=== PATIENT | female | born 1990 | race Two or more races ===

== ENCOUNTER 2024-10-09 13:15 | Inpatient (IN) | payer OTHER ==
[~2024-10-09] VITALS: Ht 162.6 cm; Wt 81.2 kg
[2024-10-18] VITALS (9 sets, daily range): BP systolic 109–127; BP diastolic 50–75
[2024-10-18] MEDS ORDERED: SYNTHROID50 MCG PO (05:48)
[2024-10-18] MEDS ORDERED: PRENATABS RX T1 EACH PO (05:48)
[2024-10-18] MEDS ORDERED: RINGERS SOLUTION,LACTATED 1,000 ML IV SCH ×2 (06:00→11:41)
[2024-10-18] MEDS ORDERED: OXYTOCIN 20 UNITS/500ML RL PIGGYBAG IV ONE (06:15)
[2024-10-18] MEDS ORDERED: OXYTOCIN 500 ML IV SCH (06:30)
[2024-10-18 06:59] LABS: PH,URINE 6.5 (5.0-8.0); URINE APPEARANCE Clear; URINE BILIRRUBIN Negative (NEGATIVE); URINE BLOOD Negative; URINE COLOR Yellow; URINE GLUCOSE Negative (NEGATIVE); URINE KETONE Negative (NEGATIVE); URINE LEUKOCYTE Negative; URINE NITRATE Negative; URINE PROTEIN Negative (NEGATIVE); URINE UROBILINOGEN 0.2 E.U./dl
[2024-10-18 07:02] LABS: URINE BACTERIA 2311.7 uL (0.0-1933); URINE EPITHELIAL CELLS 12.9 uL (0.0-38.8); URINE RBC 2.3 uL (0.0-20.8); URINE WBC 28.6 uL (0.0-23.2)
[2024-10-18 07:23] LABS: BASO % 0.4 % (0.1-1.2); EOS # 0.03 (0.04-0.54); EOS % 0.4 % (0.7-7.0); HEMATOCRIT 35.2 % (34.1-44.9); HEMOGLOBIN 11.8 g/dL (11.2-15.7); LYMPH # 1.76 (1.18-3.74); LYMPH % 25.8 % (19.3-53.1); MEAN CORPUSCULAR HEMOGLOBIN 29.9 pg (25.6-32.2); MONO # 0.55 (0.24-0.82); MONO % 8.1 % (4.7-12.5); NEUT # 4.35 (1.56-6.13); NEUT % 63.7 % (34.0-71.1); PLATELET COUNT 183 K/uL (163-369); RED BLOOD COUNT 3.95 M/uL (3.93-5.22); RED CELL DISTRIBUTION WIDTH 12.8 % (11.6-14.4)
[2024-10-18 07:42] LABS: INR < 0.93; PARTIAL THROMBOPLASTIN TIME 28.2 SECONDS (22.0-34.0); PROTHROMBIN TIME 9.9 SECONDS (9.0-11.5)
[2024-10-18] MEDS ORDERED: LEVOTHYROXINE SODIUM 50 MCG TABLET PO NR (08:20)
[2024-10-18 08:23] LABS: ALBUMIN 2.8 gm/dL (3.4-5.0); BILIRUBIN TOTAL 0.39 mg/dL (0.3-1.2); CALCIUM 8.4 mg/dL (8.5-10.1); CREATININE SERUM 0.46 mg/dL (0.55-1.02); GFR 156.44; GLOBULINA 3.6 G/DL (2.4-3.5); POTASSIUM 4.39 mEq/L (3.5-5.1); TOTAL PROTEIN 6.4 gm/dL (6.4-8.2)
[2024-10-18] MEDS ORDERED: MORPHINE SULFATE 4 MG/ML CARTRIDGE IV ONE ×2 (08:45→13:45)
[2024-10-18] MEDS ORDERED: ERYTHROMYCIN BASE OPHT 1GM EACH TUBE OP ONE ×2 (09:50→13:30)
[2024-10-18] MEDS ORDERED: OXYTOCIN 20 UNITS/1000ML RL PIGGYBAG IV ONE ×2 (09:50→15:58)
[2024-10-18] MEDS ORDERED: LIDOCAINE HCL 1% 10ML VIAL ONE ×2 (09:51→12:05)
[2024-10-18] MEDS ORDERED: CHLORHEXIDINE GLUCONATE 120 ML BOTTLE TOP ONE ×2 (09:51→13:30)
[2024-10-18] MEDS ORDERED: OXYTOCIN 1,000 ML IV ONE (11:41)
[2024-10-18] MEDS ORDERED: ACETAMINOPHEN 500 MG GEL..CAP PO PRN (13:30)
[2024-10-18] MEDS ORDERED: LIDOCAINE HCL 1% 10ML VIAL IJ ONE (13:30)
[2024-10-18] MEDS ORDERED: IBUprofen 800 MG TABLET PO PRN (13:30)
[2024-10-18] MEDS ORDERED: HYDROCORTISONE 2.5% 30 GM TUBE RECTAL SCH (17:00)
[2024-10-18] MEDS ORDERED: BENZOCAINE/MENTHOL 90 ML BOTTLE TOP SCH (17:00)
[2024-10-19 02:24] LABS: BASO % 0.2 % (0.1-1.2); EOS # 0.01 (0.04-0.54); EOS % 0.1 % (0.7-7.0); LYMPH # 1.52 (1.18-3.74); LYMPH % 10.4 % (19.3-53.1); MEAN CORPUSCULAR HEMOGLOBIN 29.7 pg (25.6-32.2); MONO # 0.83 (0.24-0.82); MONO % 5.7 % (4.7-12.5); NEUT # 12.12 (1.56-6.13); PLATELET COUNT 181 K/uL (163-369); RED BLOOD COUNT 3.57 M/uL (3.93-5.22); RED CELL DISTRIBUTION WIDTH 12.7 % (11.6-14.4)
[2024-10-19 02:29] LABS: HEMOGLOBIN 10.6 g/dL (11.2-15.7)
[2024-10-19 02:42] VITALS: BP 118/71
[2024-10-19] MEDS ORDERED: LEVOTHYROXINE SODIUM 50 MCG TABLET PO SCH (06:00)
[2024-10-19 08:00] VITALS: BP 132/78
[2024-10-19 16:04] VITALS: BP 99/67
[2024-10-20 01:20] VITALS: BP 107/71
[2024-10-20 08:19] VITALS: BP 102/67
== END 2024-10-20 15:09 | disposition home or self-care (01) | DRG 807 ==
LOC: LDR 10-17 13:15 → OB/GYN 10-18 05:12
PROVIDERS: ADMIT Specialist; ATTEND Specialist
PROC: 10E0XZZ Delivery of Products of Conception, External Approach (ICD-10-PCS; principal; 2024-10-18)
PROC: 0KQM0ZZ Repair Perineum Muscle, Open Approach (ICD-10-PCS; 2024-10-18)
PROC: 3E033VJ Introduction of Other Hormone into Peripheral Vein, Percutaneous Approach (ICD-10-PCS; 2024-10-18)
PROC: 4A1HXCZ Monitoring of Products of Conception, Cardiac Rate, External Approach (ICD-10-PCS; 2024-10-18)
DX: O70.1 Second degree perineal laceration during delivery (principal); Z37.0 Single live birth; O48.0 Post-term pregnancy; O99.284 Endocrine, nutritional and metabolic diseases complicating childbirth; E03.9 Hypothyroidism, unspecified; Z3A.40 40 weeks gestation of pregnancy